=== PATIENT | female | born 1935 | race Asian ===

== ENCOUNTER 2022-02-26 15:26 | Inpatient (IN) | payer MEDICARE, OTHER ==
[~2022-02-26] VITALS: Ht 152.4 cm; Wt 51.7 kg
--- NOTE | 2022-02-26 15:59 | NUR ---
PT IS IN ROOM #1B. DR CATALAN EVALUATED THE PT.
[2022-02-26 16:26] LABS: *BILIRUBIN,URIN NEGATIVE (NEGATIVE); *BLOOD, URINE NEGATIVE (NEGATIVE); *CLARITY,URINE SLIGHTLY CLOUDY (CLEAR); *COLOR,URINE LIGHT YELLOW (YELLOW); *KETONES,URINE NEGATIVE (NEGATIVE); *UROBILINOGEN,URINE 0.2 E.U./dl (NORMAL); LEUKOCYTE ESTERASE ,URINE TRACE (NEGATIVE); NITRITE, URINE NEGATIVE (NEGATIVE); PH,URINE 5.5 (5.0-8.0)
[2022-02-26 16:28] LABS: ALANINE AMINOTRANSFERASE 12 U/L (14-59); ALKALINE PHOSPHATASE 213 U/L (50-136); ASPARTATE AMINOTRANSFERASE 12 U/L (15-37); BILIRUBIN,DIRECT 0.1 mg/dL (0.0-0.2); BILIRUBIN,TOTAL 0.3 mg/dL (0.2-1.0); CARBON DIOXIDE 26 mmol/L (21-32); CHLORIDE 104 mmol/L (98-107); CREATININE 1.5 mg/dL (0.6-1.3); GLUCOSE 121 mg/dL (74-106); POTASSIUM 4.4 mmol/L (3.5-5.1); TOTAL PROTEIN, SERUM 7.4 g/dL (6.4-8.2); UREA NITROGEN, BLOOD 29 mg/dL (7-18)
[2022-02-26 16:37] LABS: ACETAMINOPHEN < 2.0 ug/mL (10-30)
[2022-02-26 16:42] LABS: UGLUCOSE 2+ (NEGATIVE)
[2022-02-26 16:47] LABS: *AMPHETAMINE, URINE NEGATIVE (NEGATIVE); *CANNABINOID, URINE NEGATIVE (NEGATIVE); *COCCAINE, URINE NEGATIVE (NEGATIVE); *OPIATE, URINE NEGATIVE (NEGATIVE); *PHENCYCLIDINE SCREEN,URINE NEGATIVE (NEGATIVE)
[2022-02-26 16:54] LABS: HEMATOCRIT 29.3 % (31.2-41.9); MEAN CORPUSCULAR HEMOGLOBIN 34.1 uug (24.7-32.8); MEAN CORPUSCULAR VOLUME 100.5 fL (75.5-95.3); PLATELET COUNT (AUTO) 269 K/uL (179-408)
[2022-02-26 17:08] LABS: ETHANOL < 3 MG/DL (0-0)
[2022-02-26 17:11] LABS: RBC,URINE 0-3 /HPF (0-3)
[2022-02-26 17:12] LABS: BACTERIA,URINE MANY /HPF (NONE SEEN); SQUAMOUS EPITHELIAL CELL,UR FEW /HPF (NONE SEEN)
[2022-02-26] MEDS ORDERED: CEFTRIAXONE 1 G in IV DEXTROSE 5% 50 ML IV ONE (17:45)
[2022-02-26] MEDS ORDERED: CEFTRIAXONE /D5W 50ML IVPB **ER PYXIS IV ONE (17:56)
[2022-02-26] MEDS ORDERED: ONDANSETRON 4 MG/2 ML VIAL IV PRN (19:00)
[2022-02-26] MEDS ORDERED: ACETAMINOPHEN 325 MG TABLET PO PRN (19:00)
[2022-02-26] MEDS ORDERED: TEMAZEPAM 15 MG CAPSULE PO PRN (19:00)
[2022-02-26] MEDS ORDERED: HYDROCODONE/APAP 5-325MG TABLET PO PRN (19:00)
[2022-02-26] MEDS ORDERED: REMEDY ESSENTIAL ZINC PASTE 113 GM TP PRN (19:00)
[2022-02-26] MEDS ORDERED: MAGNESIUM HYDROXIDE 30 ML LIQUID UDC PO PRN (19:00)
[2022-02-26] MEDS ORDERED: OLANZAPINE 10 MG VIAL IM ONE ×4 (19:27→21:45)
--- NOTE | 2022-02-26 21:00 | NUR ---
PT AMBULATED TO RESTROOM WITH ASSIST, STEADY GAIT.
--- NOTE | 2022-02-26 23:17 | NUR ---
GAVE REPORT TO [facility].
[2022-02-27] VITALS (7 sets, daily range): BP systolic 137–193; BP diastolic 44–83
--- NOTE | 2022-02-27 | NUR ---
Pt. admitted to TELE , under care of Yossi Marcial Dx: UTI Belongs List completed Pt admitted in stable condition. VSS. Denies any pain/discomfort, no SOB or labored breathing.
--- NOTE | 2022-02-27 00:15 | NUR ---
admit note: 86 year old female received from er via w/c. alert to name and place. patient on 5150 hold for bizarre behavior and paranoid delusions.pt was complaining that people are poisoning her and her family is being kidnaped by the neighbors. denies any pain or n/v at this time. assisted in bed. belong list done. call light w/in reach.
[2022-02-27] MEDS: IV NS 1000 ML 1,000 ML IV PRN ×2 (00:59→14:04)
--- NOTE | 2022-02-27 01:00 | NUR ---
patient is on 1:1 sitter @ bedside for safety,
--- NOTE | 2022-02-27 05:49 | NUR ---
patient remain calm and cooperative with meds and care. ivf ns @ 75 cc/hrs running well. patient ambulate with assist. continue on 1:1 sitter @ bedside for safety.no c/o pain or discomfort. call light w/in reach.
[2022-02-27] MEDS: PANTOPRAZOLE SODIUM 40 MG TABLET.DR PO SCH (06:10)
[2022-02-27 06:32] LABS: MEAN CORPUSCULAR HEMOGLOBIN 33.9 uug (24.7-32.8); MEAN CORPUSCULAR VOLUME 100.6 fL (75.5-95.3); PLATELET COUNT (AUTO) 263 K/uL (179-408)
[2022-02-27 06:42] LABS: CARBON DIOXIDE 27 mmol/L (21-32); CHLORIDE 109 mmol/L (98-107); CREATININE 1.6 mg/dL (0.6-1.3); GLUCOSE 120 mg/dL (74-106); MAGNESIUM 2.5 mg/dL (1.8-2.4); PHOSPHOROUS 4.1 mg/dL (2.5-4.9); POTASSIUM 4.4 mmol/L (3.5-5.1); UREA NITROGEN, BLOOD 25 mg/dL (7-18)
[2022-02-27 06:53] LABS: THYROID STIMULATING HORMONE 16.477 mIU/mL (0.358-3.740)
[2022-02-27] MEDS: CLONIDINE HCL 0.1 MG TABLET PO PRN ×2 (07:06→17:30)
[2022-02-27] MEDS ORDERED: LOSA100T31 PO (15:41)
[2022-02-27] MEDS ORDERED: LIDO30AD10 TD (15:41)
[2022-02-27] MEDS ORDERED: QUET50TA PO (15:41)
[2022-02-27] MEDS ORDERED: NEBI20TA2 PO (15:41)
[2022-02-27] MEDS ORDERED: CHOL200059 PO (15:41)
[2022-02-27] MEDS ORDERED: LINA5TAB PO (15:41)
[2022-02-27] MEDS ORDERED: DONE5TAB34 PO (15:41)
[2022-02-27] MEDS ORDERED: ROSU20TA2 PO (15:41)
[2022-02-27] MEDS ORDERED: EMPA10TA PO (15:41)
[2022-02-27] MEDS ORDERED: LEVO75TA7 PO (15:41)
[2022-02-27] MEDS ORDERED: ICOS1CAP PO (15:41)
[2022-02-27] MEDS ORDERED: LEMB5TAB PO (15:41)
[2022-02-27] MEDS ORDERED: CLON0.1T PO (15:41)
--- NOTE | 2022-02-27 16:40 | NUR ---
patient remain resting in bed calm and cooperative .Syriac speaking with some Monegasque. no SOB or acute distress noted at room air . IVF 0.9% NS @ 75 cc/hrs running well. patient ambulate with assist to BR. Pt remain on a hold continue on 1:1 sitter @ bedside for safety.no c/o pain or discomfort. call light w/in reach.
--- NOTE | 2022-02-27 17:45 | NUR ---
patient remain on 5150 hold for bizarre behavior and paranoid delusions on 1 to 1 sitter at bedside Pt was noted with high B/P 193/54 medicated with Clonidine 0.1 mg as ordered PRN for SBP > 150 will continue to monitor closely.
[2022-02-27] MEDS ORDERED: CEFTRIAXONE 1 G in IV DEXTROSE 5% 50 ML IV SCH (21:00)
--- NOTE | 2022-02-27 23:26 | NUR ---
PT REPORTS PAIN IN RIGHT AC, INFILTRATION NOTED, REMOVED IV CATHETER AND PLACED 22G IV CATHETER IN LEFT AC IV. RIGHT ARM ELEVATED, PT TOLERATING NEW IV PLACEMENT WELL. NAD NOTED AT THIS TIME. PT IS A&OX1, VITALS STABLE, BREATHING EVEN AND UNLABORED. ROOM LIGHTS DIMMED AND ALL SAFETY MEASURES ARE IN PLACE. SITTER IS AT BEDSIDE.
[2022-02-27] MEDS: risperiDONE 0.5 MG TABLET PO SCH (23:29)
[2022-02-28] VITALS (8 sets, daily range): BP systolic 91–198; BP diastolic 51–75
--- NOTE | 2022-02-28 04:27 | NUR ---
PT PRESENTS WITH VISUAL HALLUCINATION AND PARANOIA BUT REMAINED CALM THROUGHOUT THE NIGHT. SWELLING OF RIGHT ARM HAS SUBSIDED, PT DID NOT STATE ANY PAIN. PT IS A&OX1-2, NAD, VSS, RESPIRATION EVEN AND UNLABORED, ABLE TO FOLLOW COMMANDS AND IS CONSOLABLE. SITTER IS AT BEDSIDE.
[2022-02-28] MEDS: CLONIDINE HCL 0.1 MG TABLET PO PRN ×2 (04:30→13:05)
[2022-02-28] MEDS: IV NS 1000 ML 1,000 ML IV PRN (05:50)
[2022-02-28] MEDS: PANTOPRAZOLE SODIUM 40 MG TABLET.DR PO SCH (06:53)
[2022-02-28] MEDS ORDERED: LEVOTHYROXINE SODIUM 50 MCG TABLET PO SCH (07:00)
--- NOTE | 2022-02-28 07:27 | NUR ---
PT REPORT GIVEN TO SAMAN CONTRERAS FOR CONTINUITY OF CARE. ALL CARE ENDORSED, QUESTIONS AND CONCERNS ADDRESSED.
[2022-02-28] MEDS ORDERED: hydrALAZINE HCL 20 MG/1 ML VIAL IV PRN (08:30)
[2022-02-28] MEDS: risperiDONE 0.5 MG TABLET PO SCH (08:37)
[2022-02-28] MEDS ORDERED: METOPROLOL SUCCINATE XL 25 MG TAB.SR.24H PO SCH (09:00)
--- NOTE | 2022-02-28 09:00 | NUR ---
Pt noted with high B/P 198/75 FORENSIC DOCUMENT EXAMINER Gustavo was notified with new order for Toprol 25 mg . Meds given as ordered wiil continue to monitor B/P
[2022-02-28 09:07] LABS: CARBON DIOXIDE 22 mmol/L (21-32); CHLORIDE 110 mmol/L (98-107); CREATININE 1.5 mg/dL (0.6-1.3); GLUCOSE 164 mg/dL (74-106); POTASSIUM 4.7 mmol/L (3.5-5.1); UREA NITROGEN, BLOOD 20 mg/dL (7-18)
[2022-02-28 09:10] LABS: HEMATOCRIT 30.7 % (31.2-41.9); MEAN CORPUSCULAR HEMOGLOBIN 33.7 uug (24.7-32.8); PLATELET COUNT (AUTO) 267 K/uL (179-408)
[2022-02-28 09:11] LABS: MAGNESIUM 2.3 mg/dL (1.8-2.4); PHOSPHOROUS 3.8 mg/dL (2.5-4.9)
[2022-02-28 11:08] LABS: *BILIRUBIN,URIN NEGATIVE (NEGATIVE); *BLOOD, URINE NEGATIVE (NEGATIVE); *CLARITY,URINE CLEAR (CLEAR); *COLOR,URINE YELLOW (YELLOW); *KETONES,URINE NEGATIVE (NEGATIVE); *UROBILINOGEN,URINE 0.2 E.U./dl (NORMAL); LEUKOCYTE ESTERASE ,URINE TRACE (NEGATIVE); NITRITE, URINE NEGATIVE (NEGATIVE); UGLUCOSE 2+ (NEGATIVE)
[2022-02-28 11:47] LABS: *CREATININE,URINE 28.6 mg/dL (30-125); *URINE TOTAL PROTEIN RANDOM 26.1 mg/dL (<150/24HR)
--- NOTE | 2022-02-28 13:20 | NUR ---
Pt monitor for increase B/P up to 186/75 medicated with Clonidine 0.1 mg and Olalla for c/O of back pain will continue to monitor closely
[2022-02-28 14:12] LABS: RBC,URINE NONE SEEN /HPF (0-3); SQUAMOUS EPITHELIAL CELL,UR FEW /HPF (NONE SEEN); WBC,URINE 0-3 /HPF (0-3)
[2022-02-28 14:13] LABS: BACTERIA,URINE FEW /HPF (NONE SEEN)
[2022-02-28] MEDS ORDERED: LEVO88TA5 PO (15:09)
[2022-02-28] MEDS ORDERED: Sulfameth/Trimeth 800/160 Mg PO (15:09)
--- NOTE | 2022-02-28 18:45 | NUR ---
patient remain on 5150 hold for bizarre behavior and paranoid delusions on 1 to 1 sitter at bedside Pt was noted with high B/P during the shift medicated with Clonidine 0.1 mg as ordered PRN for SBP > 150 will continue to monitor closely Pt was discharge to [facility] unit report given to receiving nurse transfer via W/C via CABLE TOOL OPERATOR. IV at LAC was removed Pt belongings was taken with her.
[2022-02-28] MEDS ORDERED: ATOR40TA PO (20:22)
[2022-02-28] MEDS ORDERED: HYDR-3972 PO (20:28)
[2022-02-28] MEDS ORDERED: SULFAMETH/TRIMETH 800/160 MG TABLET PO SCH (21:00)
[2022-02-28] MEDS ORDERED: ATORVASTATIN 40 MG TABLET PO SCH (21:00)
[2022-03-01] MEDS ORDERED: LEVOTHYROXINE SODIUM 88 MCG TABLET PO SCH (07:00)
[2022-03-01] MEDS ORDERED: Empagliflozin (Jardiance) 10 MG) PO SCH (09:00)
[2022-03-01] MEDS ORDERED: LINAGLIPTIN 5 MG TABLET PO SCH (09:00)
[2022-03-01] MEDS ORDERED: CHOLECALCIFEROL 1,000 UNIT TABLET PO SCH (09:00)
[2022-03-01] MEDS ORDERED: Medication Not On Formulary EA (Cholecalciferol (Vitamin D3) (Vitamin D3) 5,000 UNIT) PO SCH (09:00)
[2022-03-01] MEDS ORDERED: DONEPEZIL 5 MG TABLET PO SCH (09:00)
[2022-03-01] MEDS ORDERED: SULFAMETH/TRIMETH 800/160 MG TABLET PO SCH (09:00)
[2022-03-01] MEDS ORDERED: Medication Not On Formulary EA (Rosuvastatin Calcium (Crestor) 20 MG) PO SCH (09:00)
== END 2022-02-28 19:00 | DRG 689 ==
LOC: ER 15:34 → MEDSURG3 23:25
PROVIDERS: ADMIT Nurse Practitioner Acute Care; ATTEND Nurse Practitioner Acute Care
DX: N39.0 Urinary tract infection, site not specified (principal); N17.0 Acute kidney failure with tubular necrosis; G93.41 Metabolic encephalopathy; F05 Delirium due to known physiological condition; D53.9 Nutritional anemia, unspecified; F03.90 Unspecified dementia, unspecified severity, without behavioral disturbance, psychotic disturbance, mood disturbance, and anxiety; E03.9 Hypothyroidism, unspecified; I10 Essential (primary) hypertension; B96.1 Klebsiella pneumoniae [K. pneumoniae] as the cause of diseases classified elsewhere; F29 Unspecified psychosis not due to a substance or known physiological condition; Z73.6 Limitation of activities due to disability; I12.9 Hypertensive chronic kidney disease with stage 1 through stage 4 chronic kidney disease, or unspecified chronic kidney disease; N25.0 Renal osteodystrophy; N18.2 Chronic kidney disease, stage 2 (mild)
CPT/HCPCS: 36415; 70450; 71045; 76770; 83735; 84100; 84156; 84300; 84443; 84484; 85025; 87077; 87086; 93005; 97161; A4663; G0378; G0480; J0360; J0696; J2358; J7040

== ENCOUNTER 2022-02-28 19:35 | Inpatient (IN) | payer MEDICARE, OTHER ==
[~2022-02-28] VITALS: Ht 152.4 cm; Wt 51.7 kg
[~2022-02-28 19:35] MED LIST: CHOL200059 PO; CLON0.1T PO; DONE5TAB34 PO; EMPA10TA PO; ICOS1CAP PO; LEMB5TAB PO; LEVO75TA7 PO; LEVO88TA5 PO; LIDO30AD10 TD; LINA5TAB PO; LOSA100T31 PO; NEBI20TA2 PO; QUET50TA PO; ROSU20TA2 PO; Sulfameth/Trimeth 800/160 Mg PO
[2022-02-28] MEDS ORDERED: ATOR40TA PO (20:22)
[2022-02-28] MEDS ORDERED: HYDR-3972 PO (20:28)
[2022-02-28] MEDS ORDERED: [UNRECOGNIZED DRUG - OTHER] PO PRN (20:45)
[2022-02-28] MEDS ORDERED: HYDROCODONE/APAP 5-325MG TABLET PO PRN (20:45)
[2022-02-28] MEDS ORDERED: TEMAZEPAM 7.5 MG CAPSULE PO PRN (21:00)
[2022-02-28] MEDS ORDERED: MAG HYDROX/AL HYDROX/SIMETH 30 ML LIQUID UDC PO PRN (21:00)
[2022-02-28] MEDS ORDERED: ACETAMINOPHEN 325 MG TABLET PO PRN (21:00)
[2022-02-28] MEDS ORDERED: MAGNESIUM HYDROXIDE 30 ML LIQUID UDC PO PRN (21:00)
[2022-02-28] MEDS: ATORVASTATIN 40 MG TABLET PO SCH (21:38)
[2022-02-28 21:53] VITALS: BP 188/60
[2022-02-28] MEDS ORDERED: CLONIDINE HCL 0.1 MG TABLET PO PRN (22:00)
[2022-02-28 22:30] VITALS: BP 148/72
[2022-03-01] MEDS: LORAZEPAM 1 MG TABLET PO PRN ×2 (04:04→21:45)
[2022-03-01] MEDS: LEVOTHYROXINE SODIUM 88 MCG TABLET PO SCH (06:46)
[2022-03-01 08:03] VITALS: BP 161/65
[2022-03-01] MEDS: CHOLECALCIFEROL 1,000 UNIT TABLET PO SCH (08:35)
[2022-03-01] MEDS: SULFAMETH/TRIMETH 800/160 MG TABLET PO SCH ×2 (08:36→20:13)
[2022-03-01] MEDS: OMEGA-3 FATTY ACIDS/FISH OIL CAPSULE PO SCH ×2 (08:36→17:25)
[2022-03-01] MEDS: LOSARTAN POTASSIUM 50 MG TABLET PO SCH (08:37)
[2022-03-01] MEDS: LINAGLIPTIN 5 MG TABLET PO SCH (08:37)
[2022-03-01] MEDS: CLONIDINE HCL 0.1 MG TABLET PO SCH ×3 (08:37→15:56)
[2022-03-01] MEDS: METOPROLOL TARTRATE 50 MG TABLET PO SCH ×2 (08:37→20:12)
[2022-03-01] MEDS ORDERED: Medication Not On Formulary EA (Rosuvastatin Calcium (Crestor) 20 MG) PO SCH (09:00)
[2022-03-01] MEDS ORDERED: DONEPEZIL 5 MG TABLET PO SCH (09:00)
[2022-03-01] MEDS ORDERED: Medication Not On Formulary EA (Quetiapine Fumarate (Seroquel) 50 MG) PO SCH (09:00)
[2022-03-01] MEDS: LIDOCAINE 5% PATCH TD SCH (09:14)
[2022-03-01 16:09] VITALS: BP 168/74
[2022-03-01 20:00] VITALS: BP 131/62
[2022-03-01] MEDS: ATORVASTATIN 40 MG TABLET PO SCH (20:13)
[2022-03-01] MEDS ORDERED: QUETIAPINE FUMARATE 25 MG TABLET PO SCH (21:00)
[2022-03-02] MEDS: LEVOTHYROXINE SODIUM 88 MCG TABLET PO SCH (07:13)
[2022-03-02 07:40] VITALS: BP 140/65
[2022-03-02] MEDS: CHOLECALCIFEROL 1,000 UNIT TABLET PO SCH (08:19)
[2022-03-02] MEDS: SULFAMETH/TRIMETH 800/160 MG TABLET PO SCH ×2 (08:19→20:35)
[2022-03-02] MEDS: METOPROLOL TARTRATE 50 MG TABLET PO SCH ×2 (08:20→20:36)
[2022-03-02] MEDS: CLONIDINE HCL 0.1 MG TABLET PO SCH ×3 (08:21→16:37)
[2022-03-02] MEDS: LINAGLIPTIN 5 MG TABLET PO SCH (08:21)
[2022-03-02] MEDS: LIDOCAINE 5% PATCH TD SCH (08:24)
[2022-03-02] MEDS: OMEGA-3 FATTY ACIDS/FISH OIL CAPSULE PO SCH ×2 (08:57→16:38)
[2022-03-02] MEDS: LOSARTAN POTASSIUM 50 MG TABLET PO SCH (09:00)
[2022-03-02 16:23] VITALS: BP 170/72
[2022-03-02 20:14] VITALS: BP 175/56
[2022-03-02] MEDS: ATORVASTATIN 40 MG TABLET PO SCH (20:35)
[2022-03-02] MEDS: QUETIAPINE FUMARATE 25 MG TABLET PO SCH (20:36)
[2022-03-03] MEDS: LEVOTHYROXINE SODIUM 88 MCG TABLET PO SCH (06:17)
[2022-03-03 08:12] VITALS: BP 178/73
[2022-03-03] MEDS: OMEGA-3 FATTY ACIDS/FISH OIL CAPSULE PO SCH ×2 (09:00→17:00)
[2022-03-03] MEDS: CHOLECALCIFEROL 1,000 UNIT TABLET PO SCH (09:00)
[2022-03-03] MEDS: LIDOCAINE 5% PATCH TD SCH (09:24)
[2022-03-03] MEDS: CLONIDINE HCL 0.1 MG TABLET PO SCH ×3 (09:24→17:29)
[2022-03-03] MEDS: METOPROLOL TARTRATE 50 MG TABLET PO SCH ×2 (09:25→21:00)
[2022-03-03] MEDS: LOSARTAN POTASSIUM 50 MG TABLET PO SCH (09:25)
[2022-03-03] MEDS: LINAGLIPTIN 5 MG TABLET PO SCH (09:27)
[2022-03-03] MEDS: SULFAMETH/TRIMETH 800/160 MG TABLET PO SCH ×2 (10:51→21:43)
[2022-03-03 16:23] VITALS: BP 174/52
[2022-03-03] MEDS: ENSURE ENLIVE (VAN) 240 ML LIQUID PO SCH (17:00)
[2022-03-03 19:46] VITALS: BP 118/52
[2022-03-03] MEDS: ATORVASTATIN 40 MG TABLET PO SCH (21:43)
[2022-03-03] MEDS: QUETIAPINE FUMARATE 25 MG TABLET PO SCH (21:43)
[2022-03-04] MEDS: LEVOTHYROXINE SODIUM 88 MCG TABLET PO SCH ×2 (07:00→09:16)
[2022-03-04 07:30] VITALS: BP 170/73
[2022-03-04] MEDS: OMEGA-3 FATTY ACIDS/FISH OIL CAPSULE PO SCH ×2 (09:00→16:58)
[2022-03-04] MEDS: CHOLECALCIFEROL 1,000 UNIT TABLET PO SCH (09:00)
[2022-03-04] MEDS: LOSARTAN POTASSIUM 50 MG TABLET PO SCH (09:15)
[2022-03-04] MEDS: LINAGLIPTIN 5 MG TABLET PO SCH (09:15)
[2022-03-04] MEDS: METOPROLOL TARTRATE 50 MG TABLET PO SCH ×2 (09:16→20:29)
[2022-03-04] MEDS: SULFAMETH/TRIMETH 800/160 MG TABLET PO SCH ×2 (09:16→20:28)
[2022-03-04] MEDS: CLONIDINE HCL 0.1 MG TABLET PO SCH ×3 (09:16→16:56)
[2022-03-04] MEDS: ENSURE ENLIVE (VAN) 240 ML LIQUID PO SCH ×2 (09:17→16:58)
[2022-03-04] MEDS: LIDOCAINE 5% PATCH TD SCH (09:17)
[2022-03-04 15:28] VITALS: BP 177/60
[2022-03-04 19:55] VITALS: BP 132/49
[2022-03-04] MEDS: ATORVASTATIN 40 MG TABLET PO SCH (20:29)
[2022-03-04] MEDS: QUETIAPINE FUMARATE 25 MG TABLET PO SCH (20:30)
[2022-03-05] MEDS: LEVOTHYROXINE SODIUM 88 MCG TABLET PO SCH (06:18)
[2022-03-05 07:30] VITALS: BP 149/46
[2022-03-05] MEDS: CHOLECALCIFEROL 1,000 UNIT TABLET PO SCH (08:55)
[2022-03-05] MEDS: SULFAMETH/TRIMETH 800/160 MG TABLET PO SCH ×2 (08:55→20:31)
[2022-03-05] MEDS: METOPROLOL TARTRATE 50 MG TABLET PO SCH ×2 (08:56→20:31)
[2022-03-05] MEDS: CLONIDINE HCL 0.1 MG TABLET PO SCH ×3 (08:56→17:40)
[2022-03-05] MEDS: LINAGLIPTIN 5 MG TABLET PO SCH (08:57)
[2022-03-05] MEDS: LOSARTAN POTASSIUM 50 MG TABLET PO SCH (08:57)
[2022-03-05] MEDS: OMEGA-3 FATTY ACIDS/FISH OIL CAPSULE PO SCH ×3 (08:58→17:41)
[2022-03-05] MEDS: ENSURE ENLIVE (VAN) 240 ML LIQUID PO SCH ×2 (08:58→17:41)
[2022-03-05] MEDS: LIDOCAINE 5% PATCH TD SCH (08:59)
[2022-03-05 16:00] VITALS: BP 111/45
[2022-03-05 20:00] VITALS: BP 147/76
[2022-03-05] MEDS: ATORVASTATIN 40 MG TABLET PO SCH (20:31)
[2022-03-05] MEDS: QUETIAPINE FUMARATE 25 MG TABLET PO SCH (20:32)
[2022-03-06] MEDS: LEVOTHYROXINE SODIUM 88 MCG TABLET PO SCH (06:36)
[2022-03-06 07:38] VITALS: BP 184/72
[2022-03-06] MEDS: SULFAMETH/TRIMETH 800/160 MG TABLET PO SCH (08:50)
[2022-03-06] MEDS: CHOLECALCIFEROL 1,000 UNIT TABLET PO SCH (08:50)
[2022-03-06] MEDS: LINAGLIPTIN 5 MG TABLET PO SCH (08:50)
[2022-03-06] MEDS: OMEGA-3 FATTY ACIDS/FISH OIL CAPSULE PO SCH ×2 (08:51→09:00)
[2022-03-06] MEDS: LOSARTAN POTASSIUM 50 MG TABLET PO SCH (08:51)
[2022-03-06] MEDS: METOPROLOL TARTRATE 50 MG TABLET PO SCH (08:52)
[2022-03-06] MEDS: CLONIDINE HCL 0.1 MG TABLET PO SCH ×2 (08:52→12:41)
[2022-03-06] MEDS: LIDOCAINE 5% PATCH TD SCH (08:53)
[2022-03-06] MEDS: ENSURE ENLIVE (VAN) 240 ML LIQUID PO SCH (08:53)
[2022-03-06 12:41] VITALS: BP 160/66
== END 2022-03-06 13:55 | DRG 885 ==
LOC: GPS 19:35
PROVIDERS: ADMIT Psychiatry & Neurology Psychiatry; ATTEND Nurse Practitioner Acute Care
DX: F29 Unspecified psychosis not due to a substance or known physiological condition (principal); N18.9 Chronic kidney disease, unspecified; N39.0 Urinary tract infection, site not specified; B96.1 Klebsiella pneumoniae [K. pneumoniae] as the cause of diseases classified elsewhere; I12.9 Hypertensive chronic kidney disease with stage 1 through stage 4 chronic kidney disease, or unspecified chronic kidney disease; Z79.899 Other long term (current) drug therapy; E03.9 Hypothyroidism, unspecified; F03.90 Unspecified dementia, unspecified severity, without behavioral disturbance, psychotic disturbance, mood disturbance, and anxiety; Z79.890 Hormone replacement therapy
CPT/HCPCS: 36415; 97161